=== PATIENT | female | born 1970 | race Caucasian/White ===

== ENCOUNTER 2022-03-21 20:34 | Emergency (ER) | payer BC ==
[~2022-03-21] VITALS: Ht 162.6 cm; Wt 88.5 kg
[2022-03-21] MEDS ORDERED: SIMVASTATIN5 MG (20:43)
[2022-03-21] MEDS ORDERED: SYNTHROID50 MCG (20:43)
[2022-03-22] MEDS ORDERED: KETO10TA2 PO (03:03)
[2022-03-22] MEDS ORDERED: NORFLEX100MG PO (03:03)
== END 2022-03-22 03:23 | disposition home or self-care (01) ==
LOC: ER 20:34
DX: S80.212A Abrasion, left knee, initial encounter (principal); S99.912A Unspecified injury of left ankle, initial encounter; W18.30XA Fall on same level, unspecified, initial encounter; Y93.9 Activity, unspecified; Y92.413 State road as the place of occurrence of the external cause; R07.81 Pleurodynia; M77.32 Calcaneal spur, left foot